=== PATIENT | female | born 1950 | race Caucasian/White ===

== ENCOUNTER 2016-02-24 16:49 | Outpatient (CLI) | payer OTHER ==
--- NOTE | 2016-02-24 17:19 | DIAGNOSTIC IMAGING REPORT ---
PROCEDURE: CT PELVIS WITHOUT CONTRAST INDICATION: Follow up possible foreign body (metal keys). TECHNIQUE: Noncontrast axial images with sagittal and coronal reformations. COMPARISON: Comparison is made prior studies from [facility] on 02/24/2016, including radiographs of the right hip and pelvic ultrasound. FINDINGS: Confirmation of radiopaque metal foreign bodies (metal keys) in the right lower pelvis which appear to be situated within the cecum. There is moderate stool throughout the colon. Status post hysterectomy. There are mild degenerative change of bilateral hip joints. Osseous pelvis is normal. IMPRESSION: 1. There are two metal foreign bodies (metal keys) located in the right pelvis which appear to be in the base of the cecum (metal scatter artifact obscures some detail). 2. Status post hysterectomy. 3. Findings discussed with ASUNCION Shi. All CT scans at this facility use dose modulation, iterative reconstruction, and/or weight-based dosing when appropriate to reduce radiation dose to as low as reasonably achievable.
== END 2016-02-24 23:00 ==
LOC: CT SRH 16:49
DX: T18.4XXA Foreign body in colon, initial encounter (principal)